=== PATIENT | female | born 1970 | race African-American/Black ===

== ENCOUNTER 2016-06-07 19:53 | Emergency (ER) | payer OTHER ==
[~2016-06-07] VITALS: Ht 152.4 cm; Wt 94.5 kg
[~2016-06-07 19:53] MED LIST: ALBUTEROL IH
[2016-06-07] MEDS ORDERED: LISI-662 PO (20:03)
[2016-06-07] MEDS ORDERED: METF500T4 PO (20:03)
[2016-06-07 23:29] VITALS: BP 154/88
== END 2016-06-07 23:31 | disposition home or self-care (01) ==
LOC: EMS 19:54
DX: S63.501A Unspecified sprain of right wrist, initial encounter (principal); E11.9 Type 2 diabetes mellitus without complications; I10 Essential (primary) hypertension; J45.909 Unspecified asthma, uncomplicated; X58.XXXA Exposure to other specified factors, initial encounter; Y93.89 Activity, other specified; Y92.89 Other specified places as the place of occurrence of the external cause; Y99.8 Other external cause status
CPT/HCPCS: 99284